=== PATIENT | male | born 1960 ===

== ENCOUNTER 2018-11-15 08:28 | Emergency (ER) | payer OTHER ==
[~2018-11-15] VITALS: Ht 167.6 cm; Wt 86.2 kg
== END 2018-11-15 09:52 | disposition home or self-care (01) ==
LOC: ER 08:28
DX: R10.32 Left lower quadrant pain (principal)

== ENCOUNTER 2022-06-14 09:32 | Emergency (ER) | payer OTHER ==
[~2022-06-14] VITALS: Ht 167.6 cm; Wt 90.7 kg
== END 2022-06-14 12:25 | disposition home or self-care (01) ==
LOC: ER 09:32
DX: F41.9 Anxiety disorder, unspecified (principal)